=== PATIENT | male | born 1945 | race Caucasian/White ===

== ENCOUNTER 2017-01-23 09:43 | Emergency (ER) | payer OTHER ==
[2017-01-23 11:20] VITALS: BP 135/81
--- NOTE | 2017-01-23 12:45 | RAD ---
HISTORY: Right foot and ankle pain and trauma COMPARISONS: None VIEWS: 6, Frontal, lateral, and oblique views of the right foot and of the right ankle FINDINGS: BONE DENSITY: Normal. BONES: There is no displaced fracture. JOINTS: There is no arthropathy. ALIGNMENT: There is no dislocation. SOFT TISSUES: Unremarkable. OTHER FINDINGS: None. IMPRESSION: NO ACUTE OSSEOUS INJURY TO THE RIGHT FOOT WHICH ARE THE RIGHT ANKLE. IF SYMPTOMS PERSIST, RECOMMEND REPEAT IMAGING.
--- NOTE | 2017-01-24 12:59 | UC ---
Rikki Charlton Salem, [facility]osé MD on 01/23/17 at 1211 . Lower Extremity/Ankle HPI - HPI Summary HPI Summary: In Room note: Patient is a 71 y/o male who presents to the with 7/10 right ankle pain. He was seen in the 10 days ago s/p fall and injury to the right leg. He states that pain did not reside since injury, but ankle pain has newly begun. He also states that pain is aggravated with ambulation. MD note: Pt was seen her on 01/12/17, right lower extremity. At that time the US, femur, and t-diff were negative. Nurses note: Last week on 01/12 pt was seen for right leg pain after sustaining a fall down stairs. X-rays were negative. pt presents today with increased pain to the thigh and ankle. - History of Current Complaint Chief Complaint: UCLowerExtremity Stated Complaint: LEG PAIN Time Seen by Provider: 01/23/17 11:53 Hx Obtained From: Patient Onset/Duration: Gradual Onset, Lasting Days, Still Present Severity Initially: Moderate Severity Currently: Moderate Pain Intensity: 7 Pain Scale Used: 0-10 Numeric Aggravating Factor(s): Ambulation Alleviating Factor(s): Rest Able to Bear Weight: No - Allergies/Home Medications Allergies/Adverse Reactions: Allergies Allergy/AdvReac Type Severity Reaction Status Date / Time No Known Allergies Allergy Verified 01/12/17 10:09 PMH/Surg Hx/FS Hx/Imm Hx - Surgical History Surgical History: None - Family History Known Family History: Negative: Cardiac Disease, Hypertension, Diabetes - Social History Alcohol Use: None Substance Use Type: None Smoking Status (MU): Never Smoked Tobacco Review of Systems Constitutional: Negative Musculoskeletal: Other: - Right ankle pain. Knee pain. All Other Systems Reviewed And Are Negative: Yes Physical Exam Triage Information Reviewed: Yes Appearance: Well-Appearing, No Pain Distress, Well-Nourished Vital Signs: Initial Vital Signs Temp 97.5 F 01/23/17 11:17 Pulse 78 01/23/17 11:17 Resp 18 01/23/17 11:17 BP 135/81 01/23/17 11:17 Pulse Ox 99 01/23/17 11:17 Vital Signs Reviewed: Yes Eyes: Positive: Conjunctiva Clear ENT: Positive: Hearing grossly normal, Pharynx normal, TMs normal. Negative: Muffled/hoarse voice Neck: Positive: Supple, No Lymphadenopathy Respiratory: Positive: Chest non-tender, Lungs clear, Normal breath sounds, No respiratory distress Cardiovascular: Positive: RRR, No Murmur Abdomen Description: Positive: Nontender, No Organomegaly, Soft Bowel Sounds: Positive: Present Musculoskeletal: Positive: Other: - PT IS LIMPING AND COMPLAINS OF PAIN IN RIGHT ANKLE. NO PAIN IN PELVIS. MILD TENDERNESS OVER QUADRICEPS TENDON. EXAMINATION OF RIGHT UPPER LEG SHOWS A 8INCH ABRASION HEALING WITHOUT EVIDENCE OF INFECTION ON LATERAL ASPECT WITH SOME CRUSTING. EXAMINATION OF THE KNEE SHOWS NO INSTABILITY. SLIGHT TENDERNESS IN THE CALF. PAIN OVER LATERAL ASPECT OF ANKLE AND FOOT. NEGATIVE ANTERIOR DRAWER. DISCOMFORT OVER LATERAL RIGHT MALLEOLUS, ANTERIOR TALOFIBULAR SWELLING AND PAIN. FOOT EXAMINATION: ECCHYMOSIS OVER FIRST 4 TOES. PAIN AND MILD DISCOMFORT OVER 5TH METATARSAL. PAIN IS INCREASED WHEN PT ATTEMPTS TO FULLY EXTEND THE LEG. Neurological: Positive: Alert Psychological: Positive: Age Appropriate Behavior Skin: Negative: rashes Diagnostics - Radiology ANKLE RIGHT Radiology Interpretation Completed By: Radiologist - IMPRESSION: NO ACUTE OSSEOUS INJURY TO THE RIGHT FOOT WHICH ARE THE RIGHT ANKLE. IF SYMPTOMS PERSIST , RECOMMEND REPEAT IMAGING. FOOT RIGHT Radiology Interpretation Completed By: Radiologist - IMPRESSION: NO ACUTE OSSEOUS INJURY TO THE RIGHT FOOT WHICH ARE THE RIGHT ANKLE. IF SYMPTOMS PERSIST , RECOMMEND REPEAT IMAGING. Re-Evaluation - Re-Evaluation First Eval Re-Evaluation Time: 13:01 Comment: Informed pt of imaging results. Lower Extremity Course/Dx - Course Course Of Treatment: Medications have been included in the original chart and reviewed. I discussed with pt and his son his injury to right ankle and foot. I noted that there are no broken bones, but that he should restrict movement. He refused crutches. Pt will use gel cast and moist heat and ice. He will use Ibuprofen and acetaminophen combination. Patient is Urgent/Emergent. BP elevated due to current condition w/o HTN in PMH. - Differential Dx/Diagnosis Provider Diagnoses: Right ankle lateral collateral ligament sprain and soft tissue strain and sprain right foot. Discharge - Discharge Plan Condition: Stable Disposition: HOME Patient Education Materials: Ankle Sprain (ED) Referrals: No Primary Care Phys,NOPCP [Primary Care Provider] - Additional Instructions: Thank you for helping us improve patient care by filling out the My Point Survey. WE DISCUSSED: You have sprained your right ankle. Warm moist heat in the morning; ice to area during the day after standing. Use gel-cast. Restrict walking. "If it hurts, don't do it." Aleve 200mg pills; take 2 or 3 PLUS acetaminophen 500mg-1000mg once a day, one hour before bed. Ice instructions: Put ice on the outside of the area of injury when it hurts or after activities that cause pain. You can put a cold gel pack, bag of ice, or bag of frozen vegetables on the painful area every 1 to 2 hours, for 15 minutes each time. Put a thin towel between the ice (or other cold object) and your skin. The documentation as recorded by the augustibRikki claudio Salem accurately reflects the service I personally performed and the decisions made by me, Ulises Ugalde MD.
== END 2017-01-23 13:20 | disposition home or self-care (01) ==
LOC: UCEAST 09:43
DX: S93.401A Sprain of unspecified ligament of right ankle, initial encounter (principal); S93.601A Unspecified sprain of right foot, initial encounter; W19.XXXA Unspecified fall, initial encounter; Y92.9 Unspecified place or not applicable
CPT/HCPCS: 99212; G0463

== ENCOUNTER → 2017-10-25 08:21 | Day surgery (SDC) | payer OTHER ==
[~2017-10-25 08:21] MED LIST: Acetaminophen TAB* 325 MG PO PRN; Buffered Lidocaine 0.9% SYRIN* 5 ML/SYR SYRINGE INTRADERM ONE; Cyclopentolate 1% OPTH.SOL* 2 ML BTL ONE; Ketorolac 0.5% OPHTH (NF) 0.5 % 5 ML BTL ONE; Lidocaine 1% MPF* 2 ML VIAL ONE; Lidocaine 2% EPI 1:200000 MPF* 20 ML VIAL ONE; Neomycin/Polymy/Dex OPTH.SUSP* MAXITROL 0.1% 5 ML ONE; Phenylephrine 2.5% OPTH.SOL* 2 ML BTL ONE; Povidone Iodine 5% OPTH* 30 ML BTL ONE; Proparacaine 0.5% OPHTH.SOL* 15 ML BTL ONE; acetaZOLAMIDE TAB* 250 MG ONE
[2017-10-25 11:33] VITALS: BP 93/52
--- NOTE | 2017-10-25 15:30 | OP ---
DATE OF OPERATION: 10/25/2017 - [facility] DATE OF : 1945. SURGEON: Mirza Chauhan M.D. PREOPERATIVE DIAGNOSIS: Cataract right eye. POSTOPERATIVE DIAGNOSIS: Cataract right eye. OPERATIVE PROCEDURE: Extracapsular cataract extraction with intraocular lens implant right eye. DESCRIPTION OF PROCEDURE: The patient was brought to the operating room after being given 1/2% Alcaine with epinephrine drops in the preoperative area. The eye was prepped and draped in the usual sterile fashion. Sterile drape and eyelid speculum were placed. Again, topical 1/2% Alcaine with epinephrine was given. A paracentesis incision was made at the 9 o'clock position with the No.75 blade. Clear cornea incision 2.2 x 2.2-mm was created at the 12 o'clock position starting at the anterior limbus using the 2.2-mm keratome. The anterior chamber was irrigated with 0.4 mL of 1% non-preservative intracameral lidocaine and filled with DisCoVisc. A capsulorrhexis was completed using the cystotome and the Utrata forceps. Hydrodissection was performed with balanced salt solution. The lens nucleus was removed with the Phacoemulsification handpiece without incident. Cortex was removed with the irrigation-aspiration handpiece. The capsular bag was re-inflated using DisCoVisc and an SN60WF 21.5 implant was inserted with the shooter. The irrigation-aspiration handpiece was used to remove all residual DisCoVisc. The eye was refilled with balanced salt solution and the wound checked and found to be watertight. Topical Maxitrol drops were given. [id number]/[facility] #: [id number] [facility] HOSPITALDarryl
== END | disposition home or self-care (01) ==
LOC: OREAST 08:21
PROVIDERS: ATTEND Specialist
DX: H25.812 Combined forms of age-related cataract, left eye (principal); H40.033 Anatomical narrow angle, bilateral; M54.5 Low back pain
CPT/HCPCS: A9270-GY; V2632

== ENCOUNTER 2017-11-01 09:01 | Day surgery (SDC) | payer OTHER ==
[2017-11-01] MEDS ORDERED: fentaNYL* 50 MCG/ML 2 ML VIAL (100 MCG VIAL) ONE (14:22)
[2017-11-01] MEDS ORDERED: Midazolam* 1 MG/ML 5 ML VIAL (5 MG) ONE (14:22)
[2017-11-01 15:11] VITALS: BP 97/65
--- NOTE | 2017-11-02 05:20 | OP ---
DATE OF OPERATION: 11/01/17 [facility] DATE OF : [birth year] SURGEON: Mirza Chauhan M.D. PREOPERATIVE DIAGNOSIS: Cataract, left eye. POSTOPERATIVE DIAGNOSIS: Cataract, left eye. OPERATIVE PROCEDURE: Extracapsular cataract extraction with intraocular lens implant, left eye. DESCRIPTION OF PROCEDURE: The patient was brought to the operating room after being given 1/2% Alcaine with epinephrine drops in the preoperative area. The eye was prepped and draped in the usual sterile fashion. Sterile drape and eyelid speculum were placed. Again, topical 1/2% Alcaine with epinephrine was given. A paracentesis incision was made at the 3 o'clock position with the No.75 blade. Clear cornea incision 2.2 x 2.2-mm was created at the 6 o'clock position starting at the anterior limbus using the 2.2-mm keratome. The anterior chamber was irrigated with 0.4 mL of 1% non-preservative intracameral lidocaine and filled with DisCoVisc. A capsulorrhexis was completed using the cystotome and the Utrata forceps. Hydrodissection was performed with balanced salt solution. The lens nucleus was removed with the Phacoemulsification handpiece without incident. Cortex was removed with the irrigation-aspiration handpiece. The capsular bag was re-inflated using DisCoVisc and an SN60WF 21.5 implant was inserted with the shooter. The irrigation-aspiration handpiece was used to remove all residual DisCoVisc. The eye was refilled with balanced salt solution and the wound checked and found to be watertight. Topical Maxitrol drops were given. [id number]/[facility] #: [id number] MTDD
== END 2017-11-01 15:40 | disposition home or self-care (01) ==
LOC: OREAST 09:01
PROVIDERS: ATTEND Specialist
DX: H25.812 Combined forms of age-related cataract, left eye (principal); H40.033 Anatomical narrow angle, bilateral; M54.5 Low back pain; N40.1 Benign prostatic hyperplasia with lower urinary tract symptoms; F41.9 Anxiety disorder, unspecified
CPT/HCPCS: A9270-GY; J2250; J3010; V2632

== ENCOUNTER 2019-05-11 06:56 | Emergency (ER) | payer MEDICARE ==
[2019-05-11] MEDS ORDERED: Ketorolac INJ* 30 MG/ML 1 ML VIAL IV ONE (07:11)
[2019-05-11] MEDS ORDERED: NS 0.9% 1000 ML** 1,000 ML IV ONE (07:11)
--- NOTE | 2019-05-11 07:26 | ED ---
Abdominal Pain/Male - HPI Summary HPI Summary: Pt is a 73yo otherwise healthy male who presents with acute onset bilateral flank pain starting at 8pm last evening. Hx of stones. Worsening pain with urination, also endorsing UTI sxs including burning and urgency. Denies frequency. Denies gross hematuria. He states sxs are similar to his previous hx of stones. Worse with urination, better after evacuating his bladder. Sxs remain present though throughout. Denies fevers, sweats or chills. Denies n/v. Denies constipation or diarrhea. - History of Current Complaint Chief Complaint: EDFlankPain Stated Complaint: DIFFICULTY URINATING PER EMS Time Seen by Provider: 05/11/19 07:08 Hx Obtained From: Patient Onset/Duration: Sudden Onset Timing: Constant Severity Initially: Moderate Severity Currently: Moderate Pain Intensity: 8 Pain Scale Used: 0-10 Numeric Location: Flank - bilateral Radiates: No Character: Sharp, Cramping Aggravating Factor(s): Nothing Alleviating Factor(s): Nothing Associated Signs And Symptoms: Positive: Urinary Symptoms - Allergies/Home Medications Allergies/Adverse Reactions: Allergies Allergy/AdvReac Type Severity Reaction Status Date / Time No Known Allergies Allergy Verified 05/11/19 07:06 PMH/Surg Hx/FS Hx/Imm Hx Previously Healthy: Yes - Immunization History Hx Pertussis Vaccination: No Immunizations Up to Date: Yes Infectious Disease History: No Infectious Disease History: Denies: Traveled Outside the [place] in Last 30 Days - Social History Occupation: Unemployed Lives: Alone Alcohol Use: None Substance Use Type: Reports: None Smoking Status (MU): Never Smoked Tobacco Review of Systems Negative: Fever, Chills, Fatigue, Skin Diaphoresis Negative: Palpitations, Chest Pain Negative: Shortness Of Breath, Cough Positive: Abdominal Pain. Negative: Vomiting, Diarrhea, Nausea Genitourinary: Negative Positive: no symptoms reported, see HPI, dysuria, flank pain - bilateral, pain, urgency. Negative: hematuria, incontinence Negative: Arthralgia, Myalgia Neurological: Negative All Other Systems Reviewed And Are Negative: Yes Physical Exam Triage Information Reviewed: Yes Vital Signs On Initial Exam: Initial Vitals Temp Pulse Resp BP Pulse Ox 98.3 F 61 18 149/75 97 05/11/19 07:04 05/11/19 07:04 05/11/19 07:04 05/11/19 07:04 05/11/19 07:04 Vital Signs Reviewed: Yes Appearance: Positive: Well-Appearing, Pain Distress Skin: Positive: Skin Color Reflects Adequate Perfusion Eyes: Positive: EOMI, TRACY Neck: Positive: Supple, Nontender, No Lymphadenopathy Respiratory/Lung Sounds: Positive: Clear to Auscultation, Breath Sounds Present Cardiovascular: Positive: RRR, Pulses are Symmetrical in both Upper and Lower Extremities Abdomen Description: Positive: CVA Tenderness (R), CVA Tenderness (L) Musculoskeletal: Positive: Strength/ROM Intact Neurological: Positive: Speech Normal Psychiatric: Positive: Affect/Mood Appropriate Diagnostics - Vital Signs Vital Signs Temp Pulse Resp BP Pulse Ox 05/11/19 07:04 98.3 F 61 18 149/75 97 - Laboratory Result Diagrams: 05/11/19 07:15 05/11/19 07:23 Lab Statement: Any lab studies that have been ordered have been reviewed, and results considered in the medical decision making process. Abdominal Pain Male Course/Dx - Course Course Of Treatment: During this was treatment, the patient is evaluated for bilateral flank pain with a history of kidney stones. He is also stating symptoms are worse with urination. He denies any frequency or urgency, however he states it is difficult to urinate and feels he does not have a strong stream. He states he has had the symptoms in the past when he has had kidney stones. Currently on no medications. Post void bladder scan reveals 580 ML. Immediately following Parker catheter placement, reveals 1500 mL. He was repleted with 1 L fluids just prior to fully catheter placement. He was observed for another 2 hours, at 10:30 AM a total of 1700, at 11 AM a total of 1800. This was changed at 30min rivas, and reveals 75ml at 12pm and 100ml at 12: 30pm. He was given 3 pedialyte in the ED. Endorses no pain at this time. He will be DC'd and instructions of parker bag change given. Pt states he understands. Will f/u with Dr. Phan next week in his office. Bactrim twice daily given. - Diagnoses Differential Diagnosis/HQI/PQRI: Ureteral Stone, Urinary Tract Infection, Other - kidney stones Provider Diagnoses: Bladder outlet obstruction Discharge ED - Sign-Out/Discharge Documenting (check all that apply): Patient Departure Patient Received Moderate/Deep Sedation with Procedure: No - Discharge Plan Condition: Stable Disposition: HOME Prescriptions: Sulfamethox/Trimethoprim DS* [Bactrim DS 800/160 TAB*] 1 tab PO BID #10 tab Patient Education Materials: Urinary Retention in Men (ED), Enlarged Prostate ( BPH) (ED) Referrals: No Primary Care Phys,NOPCP [Primary Care Provider] - Cristopher Phan MD [Medical Doctor] - Additional Instructions: You will need to keep the parker bag in place until you follow up with Dr. Phan' s office next week Call them Monday morning to make an appt - you will see them either Monday or Monday You have an enlarged prostate which is causing your urine to back up, this is why you need to parker catheter You will also be on antibiotics Bactrim twice daily x 5 days - Billing Disposition and Condition Condition: STABLE Disposition: Home
[2019-05-11 07:43] LABS: ABS Lymphocytes 1.3 10^3/ul (1.0-4.8); ABS Monocytes 0.5 10^3/ul (0-0.8); Eosinophil % 0.4 %; Hematocrit 45 % (42-52); Hemoglobin 16.4 g/dL (14.0-18.0); Lymphocyte % 15.1 %; Mean Corpuscular HGB Conc 36 g/dL (31-36); Mean Corpuscular Hemoglobin 33 pg (27-31); Mean Corpuscular Volume 91 fL (80-94); Mean Platelet Volume 7.8 fL (7.4-10.4); Platelet Count 197 10^3/uL (150-450); Red Blood Count 4.96 10^6 /uL (4.18-5.48); Red Cell Distribution Width 13 % (10-15); White Blood Count 8.9 10^3/uL (3.5-10.8)
[2019-05-11 07:50] LABS: Albumin 4.1 g/dL (3.2-5.2); Albumin/Globulin Ratio 1.5 (1-3); BUN/Creatinine Ratio 24.4 (8-20); C Reactive Protein 5.3 mg/L (<8.01); Calcium 9.1 mg/dL (8.6-10.3); EGFR African American 111.7 (>60); EGFR Non-African American 92.4 (>60); Globulin 2.7 g/dL (2-4); Potassium 3.7 mmol/L (3.5-5.0); Total Bilirubin 0.7 mg/dL (0.2-1.0); Total Protein 6.8 g/dL (6.4-8.9)
[2019-05-11 07:55] LABS: Urine Appearance Cloudy; Urine Bacteria Absent (Absent); Urine Bilirubin Negative (Negative); Urine Blood 3+ (Negative); Urine Color Yellow; Urine Glucose Negative (Negative); Urine Ketones Negative (Negative); Urine Nitrite Negative (Negative); Urine Protein Negative (Negative); Urine Red Blood Cell 3+(>10/hpf) (Absent); Urine Urobilinogen Negative (Negative); Urine White Blood Cell Trace(0-5/hpf) (Absent)
[2019-05-11] MEDS ORDERED: cefTRIAXone(*) 2 GM in NS 0.9% 100 ML* 100 ML IVPB ONE (10:08)
[2019-05-11 11:54] VITALS: BP 119/66
== END 2019-05-11 12:00 | disposition home or self-care (01) ==
LOC: EDBD → MERGE 06:56 → ED 06:56
DX: N32.0 Bladder-neck obstruction (principal); R10.84 Generalized abdominal pain; R30.0 Dysuria; Z87.442 Personal history of urinary calculi
CPT/HCPCS: 36415; 74176; 80053; 81003; 81015; 83605; 83690; 83735; 85025; 86140; 87086; 96361; 96365; 96375; 99283; J0696; J1885

== ENCOUNTER 2019-08-19 07:03 | Day surgery (SDC) | payer MEDICARE ==
--- NOTE | 2019-07-30 19:09 | HP ---
CC: Eve Holguin NP * ADMITTING HISTORY AND PHYSICAL: DATE OF ADMISSION: 08/05/19 ADMITTING DIAGNOSES: 1. Urinary retention. 2. Multiple large bladder calculi. PLANNED PROCEDURE: Cystoscopy, fragmentation and removal of bladder calculi, possible laser. SURGEON: Dr. Phan. HISTORY OF PRESENT ILLNESS: Davion Chong is a 74-year-old gentleman, who had initially been evaluated a few months ago because of urinary retention and findings of almost 1.5 L of urine back up in his bladder. He was also noted at that time to have bilateral hydronephrosis secondary to the bladder outlet obstruction and has been managed with an indwelling Jaime catheter. 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 Cystoscopy had revealed multiple large bladder calculi and he is now being brought in for endoscopic management of the bladder calculi. PAST MEDICAL HISTORY: Significant for a history of renal calculi and BPH. PAST SURGICAL HISTORY: Negative. MEDICATIONS ON ADMISSION: Finasteride 5 mg daily. ALLERGIES: No known drug allergies. FAMILY HISTORY: Negative for prostate cancer. SOCIAL HISTORY: Smoking history: He is a nonsmoker. REVIEW OF SYSTEMS: He is otherwise in excellent health and appears younger than his stated age. He is fairly active physically. He denies any chest pain or shortness of breath. He is alert and oriented, and there is no history of diabetes mellitus or any other major systemic illness. PHYSICAL EXAMINATION GENERAL: Reveals a pleasant gentleman. VITAL SIGNS: Blood pressure is 144/80, pulse 88 per minute, temperature 97, oxygen saturation 98% on room air. LUNGS: Clear bilaterally. CARDIOVASCULAR: Regular rate and rhythm. S1, S2. ABDOMEN: Soft without masses. A Jaime catheter is in place, draining clear urine. IMPRESSION: A 74-year-old gentleman with urinary retention and multiple bladder calculi. I have discussed with procedure in details with Mr. Chong and his son, and also explained that because of large size and number of the calculi , he may end up having to have a 2-stage procedure and this has been discussed with him. PLAN/RECOMMENDATIONS: Fragmentation and removal of bladder calculi, possible laser. [id number]/[facility] #: [id number] [facility]
[~2019-08-19 07:03] MED LIST changes: -Acetaminophen TAB* 325 MG PO PRN; -Buffered Lidocaine 0.9% SYRIN* 5 ML/SYR SYRINGE INTRADERM ONE; +Buffered Lidocaine 1% SYRIN* 1 ML/SYRINGE INTRADERM ONE; -Cyclopentolate 1% OPTH.SOL* 2 ML BTL ONE; +Dexamethasone IV* 4 MG/ML 1 ML (4 MG) IV SLOW PU ONE; +Famotidine IV* 10 MG/ML 2 ML (20 mg) IV ONE; +Gentamicin ADULT (*) 160 MG in NS 0.9% 100 ML* 100 ML IVPB ONE; -Ketorolac 0.5% OPHTH (NF) 0.5 % 5 ML BTL ONE; +Lactated Ringers 1000 ML Bag* 1,000 ML IV SCH; -Lidocaine 1% MPF* 2 ML VIAL ONE; -Lidocaine 2% EPI 1:200000 MPF* 20 ML VIAL ONE; -Neomycin/Polymy/Dex OPTH.SUSP* MAXITROL 0.1% 5 ML ONE; -Phenylephrine 2.5% OPTH.SOL* 2 ML BTL ONE; -Povidone Iodine 5% OPTH* 30 ML BTL ONE; -Proparacaine 0.5% OPHTH.SOL* 15 ML BTL ONE; -acetaZOLAMIDE TAB* 250 MG ONE
[2019-08-19] MEDS ORDERED: Buffered Lidocaine 1% SYRIN* 1 ML/SYRINGE INTRADERM ONE (08:07)
[2019-08-19] MEDS ORDERED: cefTRIAXone(*) 2 GM ADDV.VIAL IVPB ONE (08:07)
[2019-08-19] MEDS ORDERED: Propofol* 10 MG/ML 20 ML BTL ONE (08:24)
[2019-08-19] MEDS ORDERED: Lidocaine 2% PF * 5 ML VIAL ONE (08:24)
[2019-08-19] MEDS ORDERED: Midazolam* 1 MG/ML 2 ML VIAL (2 MG) ONE (08:24)
[2019-08-19] MEDS ORDERED: fentaNYL* 50 MCG/ML 2 ML VIAL (100 MCG VIAL) ONE (08:24)
[2019-08-19] MEDS ORDERED: Iohexol 180 (CONTRAST) 10 ML SDV IV ONE (08:33)
[2019-08-19] MEDS ORDERED: Metoclopramide IV* 5 MG/ML 2 ML VIAL ONE (09:50)
[2019-08-19] MEDS ORDERED: Ketorolac INJ* 30 MG/ML 1 ML VIAL ONE (09:50)
[2019-08-19] MEDS ORDERED: Dexamethasone IV* 4 MG/ML 1 ML (4 MG) ONE (09:50)
[2019-08-19] MEDS ORDERED: Ondansetron INJ* 2 MG/ML VIAL ONE (09:50)
[2019-08-19] MEDS ORDERED: Furosemide IV* 10 MG/ML 2 ML VIAL (20 MG) ONE (10:10)
[2019-08-19] MEDS ORDERED: Acetaminophen TAB* 325 MG PO PRN (10:12)
[2019-08-19] MEDS ORDERED: oxyCODONE TAB* 5 MG TAB PO PRN (10:12)
[2019-08-19] MEDS ORDERED: Naloxone* 0.4 MG/ML 1 ML VIAL IV PRN (10:12)
[2019-08-19] MEDS ORDERED: DiMENhydriNATE IV* 50 MG/ML VIAL IV PUSH PRN (10:12)
[2019-08-19] MEDS ORDERED: Lidocaine 2% JELLY* 6 ML JELLY TOPICAL ONE (11:20)
[2019-08-19 12:14] VITALS: BP 120/71
--- NOTE | 2019-08-19 20:13 | OP ---
CC: Eve Holguin NP * DATE OF OPERATION: 08/19/19 - [facility] DATE OF : [birth year] SURGEON: Cristopher Phan MD ANESTHESIOLOGIST: Dr. Bernard. ANESTHESIA: General. PRE-OP DIAGNOSES: 1. Urinary retention. 2. Multiple large bladder calculi. POST-OP DIAGNOSES: 1. Urinary retention. 2. Multiple large bladder calculi. OPERATIVE PROCEDURE: Cystoscopy, fragmentation, and removal of bladder calculi. COMPLICATIONS: None. CATHETER: 24-[place]er Jaime. BLOOD LOSS: Less than 25 cc. OPERATIVE FINDINGS: 1. Markedly enlarged prostate. 2. Trabeculated bladder. 3. Multiple (6 to 7) large bladder calculi. POSTOPERATIVE CONDITION: Stable. INDICATIONS: Davion Chong is a 74-year-old gentleman, who was initially evaluated for urinary retention, and at that time, was also noted to have multiple bladder calculi. He is now being brought in for treatment of the same. Because of the large size and multiplicity of the calculi, I have explained to him and his son that he may require a 2-stage procedure. DESCRIPTION OF PROCEDURE: After induction of general anesthesia, the patient was placed in dorsal lithotomy position. Sequential compression devices were in place and functioning. Initial cystoscopy revealed a normal-appearing urethra and markedly enlarged prostate and trabeculated bladder. The bladder denton showed some reactive changes secondary to multiple large bladder calculi. Visualization was somewhat limited in terms of assessing the bladder wall because of the very large size and number of the calculi. Using the stone crushing forceps, fragmentation of the calculi was carried out. Of the 7 to 8 large calculi, 5 of them were completely fragmented and the fragments were irrigated out. As expected during the procedure, there was some bleeding noted from the bladder denton and the bladder neck, which was making visibility more difficult, so I elected to leave the last 1 or 2 stones untreated and plan to bring him back in 3 to 4 months for a followup procedure to finish that. There was no evidence of injury to the bladder and a 24-[place]er Jaime catheter was introduced without difficulty and connected to a drainage bag. The patient tolerated the procedure satisfactorily and was transferred back to the recovery area in stable condition. [id number]/[facility] #: [id number] [facility]
== END 2019-08-19 12:28 | disposition home or self-care (01) ==
LOC: OR 07:03
PROVIDERS: ATTEND Urology
DX: N21.0 Calculus in bladder (principal); R33.8 Other retention of urine; C61 Malignant neoplasm of prostate; N40.0 Benign prostatic hyperplasia without lower urinary tract symptoms; Z87.442 Personal history of urinary calculi
CPT/HCPCS: 82365; 88300; J0696; J1100; J1580; J1885; J1940; J2250; J2405; J2704; J2765; J3010

== ENCOUNTER 2019-11-22 04:21 | Emergency (ER) | payer MEDICARE ==
--- NOTE | 2019-11-22 04:54 | ED ---
GI/ HPI - HPI Summary HPI Summary: Patient is a 74 year-old male presenting to [facility] Emergency Department with a chief complaint of urinary retention via dysfunctional Parker catheter since 2200 last night. He reports that his Parker, which is placed for BPH, had been working yesterday until approximately 2200 when it stopped draining correctly. There is nothing in the bag at this time. Symptoms are currently rated 9/10 in severity. He had been seeing Dr. Phan from urology, but he recently switched to a provider in [facility]. He denies any fevers, chills, or shortness of breath. Past medical history includes kidney stones. Nonsmoker, no alcohol use, no substance use. Medications reviewed. Allergies noted. - History of Current Complaint Chief Complaint: EDUrogenitalProblems Time Seen by Provider: 11/22/19 04:42 Stated Complaint: UNABLE TO URINATE PER PT Hx Obtained From: Patient Onset/Duration: Started Hours Ago Timing: Constant Severity: Moderate Current Severity: Severe Pain Intensity: 9 Associated Signs and Symptoms: Negative: Fever, Chills, Other: - shortness of breath Aggravating Factor(s): Nothing Alleviating Factor(s): Nothing - Allergy/Home Medications Allergies/Adverse Reactions: Allergies Allergy/AdvReac Type Severity Reaction Status Date / Time No Known Allergies Allergy Verified 11/22/19 04:26 Home Medications: Home Medications Finasteride [Proscar] 5 mg PO QAM 07/30/19 [History Confirmed 08/19/19] Ciprofloxacin TAB* [Cipro 500 MG TAB*] 500 mg PO BID #14 tab 11/22/19 [Rx] PMH/Surg Hx/FS Hx/Imm Hx Endocrine/Hematology History: Denies: Hx Diabetes Cardiovascular History: Denies: Hx Hypertension, Hx Pacemaker/ICD, Other Cardiovascular Problems/ Disorders Respiratory History: Denies: Other Respiratory Problems/Disorders GI History: Denies: Other GI Disorders History: Reports: Hx Benign Prostatic Hyperplasia, Hx Kidney Stones - 2001 passed w/o surgery, Other Problems/Disorders - BPH Musculoskeletal History: Reports: Other Musculoskeletal History - broken vertebrae in lumbar 1997, placed in brace no surgery Sensory History: Reports: Hx Cataracts - left eye no surgery, Hx Contacts or Glasses - GLASSES Denies: Hx Hearing Aid Opthamlomology History: Reports: Hx Cataracts - left eye no surgery, Hx Contacts or Glasses - GLASSES Neurological History: Denies: Other Neuro Impairments/Disorders Psychiatric History: Denies: Hx Panic Disorder - Surgical History Surgical History: None Surgery Procedure, Year, and Place: NONE PER PT Hx Anesthesia Reactions: No Infectious Disease History: No Infectious Disease History: Denies: Traveled Outside the [place] in Last 30 Days - Family History Known Family History: Negative: Cardiac Disease, Hypertension, Diabetes - Social History Alcohol Use: None Hx Substance Use: No Substance Use Type: Reports: None Hx Tobacco Use: No Smoking Status (MU): Never Smoked Tobacco Review of Systems Negative: Fever, Chills Negative: Shortness Of Breath Positive: other - urination retention via Parker catheter All Other Systems Reviewed And Are Negative: Yes Physical Exam - Summary Physical Exam Summary: VITAL SIGNS: Reviewed. GENERAL: Patient is a well-developed and nourished elderly male who under some distress pacing around the room secondary to lower abdominal pain and urinary retention. Patient is not in any acute respiratory distress. HEAD AND FACE: No signs of trauma. No ecchymosis, hematomas or skull depressions. No sinus tenderness. EYES: PERRLA, EOMI x 2, No injected conjunctiva, no nystagmus. EARS: Hearing grossly intact. Ear canals and tympanic membranes are within normal limits. MOUTH: Oropharynx within normal limits. NECK: Supple, trachea is midline, no adenopathy, no JVD, no carotid bruit, no c- spine tenderness, neck with full ROM. CHEST: Symmetric, no tenderness at palpation. LUNGS: Clear to auscultation bilaterally. No wheezing or crackles. CVS: Regular rate and rhythm, S1 and S2 present, no murmurs or gallops appreciated. ABDOMEN: Soft, non-tender. Distended abdomen. No rebound, no guarding, and no masses palpated. Bowel sounds are normal. EXTREMITIES: FROM in all major joints, no edema, no cyanosis or clubbing. NEURO: Alert and oriented x 3. No acute neurological deficits. Speech is normal and follows commands. SKIN: Dry and warm. : Parker catheter is in place with leg bag dry and empty. Triage Information Reviewed: Yes Vital Signs On Initial Exam: Initial Vitals Temp Pulse Resp BP Pulse Ox 97.0 F 82 20 154/86 98 11/22/19 04:22 11/22/19 04:22 11/22/19 04:22 11/22/19 04:22 11/22/19 04:22 Vital Signs Reviewed: Yes Procedures - Sedation Patient Received Moderate/Deep Sedation with Procedure: No Diagnostics - Vital Signs Vital Signs Temp Pulse Resp BP Pulse Ox 11/22/19 04:22 97.0 F 82 20 154/86 98 - Laboratory Lab Statement: Any lab studies that have been ordered have been reviewed, and results considered in the medical decision making process. Re-Evaluation - Re-Evaluation First Eval Re-Evaluation Time: 05:05 Change: Improved Comment: Bladder scanner showed 346mls urine, per nurse. After parker was replaced, the patient expressed 600mls cloudy urine. GIGU Course/Dx - Course Assessment/Plan: Patient is a 74 year-old male presenting to [facility] Emergency Department with a chief complaint of urinary retention via dysfunctional Parker catheter since 2200 last night. He reports that his Parker, which is placed for BPH, had been working yesterday until approximately 2200 when it stopped draining correctly. There is nothing in the bag at this time. Symptoms are currently rated 9/10 in severity. He had been seeing Dr. Phan from urology, but he recently switched to a provider in [facility]. He denies any fevers, chills, or shortness of breath. Past medical history includes kidney stones. Nonsmoker, no alcohol use, no substance use. Medications reviewed. Allergies noted. Bladder scan shows more than 300. We changed the Parker catheter, and he expressed more than 600 cc of urine. Urinalysis positive for UTI. The patient was given cCiprofloxacin, and he will be discharged home and follow with his urologist. At this point the patient is feeling much more comfortable. The patient is alert and oriented. - Diagnoses Provider Diagnoses: UTI (urinary tract infection), Urinary retention Discharge ED - Sign-Out/Discharge Documenting (check all that apply): Patient Departure - Patient will be discharged home. - Discharge Plan Condition: Stable Disposition: HOME Prescriptions: Ciprofloxacin TAB* [Cipro 500 MG TAB*] 500 mg PO BID #14 tab Patient Education Materials: Urinary Retention in Men (ED), Enlarged Prostate ( BPH) (ED), Urinary Tract Infection in Men (ED), Parker Catheter Placement and Care (ED) Referrals: Eve Holguin [employer] SURGEON [Primary Care Provider] - 3 Days Additional Instructions: Please take medications as prescribed. Follow up with your primary care provider in 2-3 days. Return to the emergency department for any new or worsening symptoms. - Billing Disposition and Condition Condition: STABLE Disposition: Home - Attestation Statements Document Initiated by Ihsan: Yes Documenting Scribe: Vikki Luis Provider For Whom Ihsan is Documenting (Include Credential): Aroldo Ortega MD Scribe Attestation: Vikki Charlton, scribed for Aroldo Ortega MD on 11/22/19 at 0656. Scribe Documentation Reviewed: Yes Provider Attestation: The documentation as recorded by the Vikki march accurately reflects the service I personally performed and the decisions made by me, Aroldo Ortega MD Status of Scribe Document: Viewed
[2019-11-22 05:13] LABS: Urine Appearance Turbid; Urine Bilirubin Negative (Negative); Urine Blood 3+ (Negative); Urine Color Yellow; Urine Glucose Negative (Negative); Urine Ketones Negative (Negative); Urine Nitrite Positive (Negative); Urine Protein 2+(100 mg/dL) (Negative); Urine Specific Gravity 1.017 (1.010-1.030); Urine Urobilinogen Negative (Negative)
[2019-11-22 05:16] LABS: Urine Bacteria 1+ (Absent); Urine Red Blood Cell 3+(>10/hpf) (Absent); Urine White Blood Cell 3+(>20/hpf) (Absent)
[2019-11-22] MEDS ORDERED: Ciprofloxacin TAB* 500 MG PO ONE (05:25)
[2019-11-22 05:51] VITALS: BP 106/72
== END 2019-11-22 05:50 | disposition home or self-care (01) ==
LOC: ED 04:21
DX: T83.511A Infection and inflammatory reaction due to indwelling urethral catheter, initial encounter (principal); R33.9 Retention of urine, unspecified; N40.0 Benign prostatic hyperplasia without lower urinary tract symptoms; Z87.442 Personal history of urinary calculi
CPT/HCPCS: 81003; 81015; 87077; 87086; 87186; 99282; A9270-GY